=== PATIENT | male | born 1950 | race Caucasian/White ===

== ENCOUNTER 2016-05-14 06:04 | Emergency (ER) | payer OTHER ==
[~2016-05-14] VITALS: Ht 182.9 cm; Wt 77.1 kg
[~2016-05-14 06:04] MED LIST: MEDROL DOSEPAK1 PAC PO
[2016-05-14 08:31] VITALS: BP 110/70
--- NOTE | 2016-05-14 08:54 | ED INFLUENZA/URI COMPLAINT ---
History of Present Illness General Chief Complaint: General Adult Stated Complaint: "IM SICK" Source: patient Exam Limitations: no limitations Vital Signs & Intake/Output Vital Signs & Intake/Output Vital Signs Date Time Temp Pulse Resp B/P Pulse O2 O2 Flow FiO2 Ox Delivery Rate 05/14 0731 99.2 109 110/70 96 05/14 0628 99.3 110 18 135/79 96 Room Air Allergies Coded Allergies: amoxicillin (05/14/16) Reconcile Medications Azithromycin (Zithromax) 250 MG TABLET 1 DP PO AD PNA 2 the first day followed by 1 for days 2-5 Methylprednisolone. (Medrol) 1 PAC PAC 1 TAB PO DAILY ALLERGIC REACTION TAKE PACK DIRECTED Triage Note: COUGH,CHEST CONGESTION SINCE ,DECREASED APPETITE,WAS RX AMOXICILLIN FOR BRONCHITIS BUT IT GAVE HIM DIARRHEA SO HE STOPPED TAKING IT Triage Nurses Notes Reviewed? yes HPI: 65-year-old male with cough congestion and increased wheezing, nasal congestion, tactile fever intermittently for the last 12 days. He was seen at a walk-in center and onset of symptoms and placed on amoxicillin, was able take a few doses of this as they diagnosed with bronchitis however it caused stomach upset. Stopped taking it. He has had a poor appetite. He is able to drink fluids. His symptoms are moderate to severe. Past History Travel History Traveled to [place] past 21 day No Medical History Any Pertinent Medical History? see below for history Neurological: NONE EENT: NONE Cardiovascular: NONE Respiratory: NONE Gastrointestinal: NONE Hepatic: NONE Renal: NONE Musculoskeletal: L LEG FX/SX Psychiatric: PANIC ATTACKS Endocrine: NONE Blood Disorders: NONE Cancer(s): NONE LAWYER PROBATE/Reproductive: NONE Surgical History Surgical History: non-contributory Psychosocial History What is your primary language Azeri Tobacco Use: Never used Family History Hx Contributory? No Review of Systems Review of Systems Constitutional: Reports: see HPI. EENTM: Reports: see HPI. Respiratory: Reports: see HPI. Cardiovascular: Reports: no symptoms. GI: Reports: no symptoms. Genitourinary: Reports: no symptoms. Musculoskeletal: Reports: no symptoms. Skin: Reports: no symptoms. Neurological/Psychological: Reports: no symptoms. Hematologic/Endocrine: Reports: no symptoms. Immunologic/Allergic: Reports: no symptoms. All Other Systems: Reviewed and Negative Physical Exam Physical Exam General Appearance: well developed/nourished Ears, Nose, Throat: moist mucous membrane, hearing grossly normal, pharynx normal, nasal congestion Comments: Well-developed well-nourished no apparent distress. HEENT: Atraumatic, extraocular motion intact Neck: Supple, no lymphadenopathy Back: Nontender Respiratory: No respiratory distress. Faint expiratory wheezing and mild rhonchi noted Heart: Regular rate and rhythm no murmur Abdomen: Soft nontender nondistended Gait is within normal limits Extremities: No edema, full range of motion Neuro: Alert and oriented x3 Psych: Mood affect normal, normal memory normal judgment. Skin: Warm and dry, no rash on exposed skin Core Measures Severe Sepsis Present: No Septic Shock Present: No Progress Differential Diagnosis: influenza, meningitis, neutropenia, otitis, pneumonia, pharyngitis, sinusitis Plan of Care: Orders Procedure Date/time Status XRY-CHEST XRAY, PA AND LATERAL 05/14 844 Active Diagnostic Imaging: Viewed by Me: Radiology Read. Discussed w/RAD: Radiology Read. CXR Impression: PATIENT: ANDREINA MUHAMMAD JR PRESENT AGE: 66 PATIENT ACCOUNT NO: [id number] : 52 LOCATION: [facility] ORDERING PHYSICIAN: RAMON LR SERVICE DATE: 05/14/16 EXAM TYPE: RAD - XRY-CHEST XRAY, PA AND LATERAL EXAMINATION: XR CHEST CLINICAL INFORMATION: Cough , fever COMPARISON: 04/10/2015 TECHNIQUE: PA and lateral views of the chest were obtained. FINDINGS: The lungs are clear with no focal consolidation. No evidence of pneumothorax, pulmonary edema, or pleural effusions. The cardiomediastinal silhouette is unremarkable. No acute osseous findings. IMPRESSION: No acute cardiopulmonary findings. DICTATED BY: KIMBERLEY FINK MD DATE/TIME DICTATED:09/23 USED EQUIPMENT SALES REPRESENTATIVE:ELLIOT DATE/TIME TRANSCRIBED:05/14/16943 Initial ED EKG: none Comments: Patient has had URI symptoms for approximately 12 days, he has not completed a course of antibiotics, his chest x-ray is clear however there may be a slight retrocardiac infiltrate that I see on the lateral view, we'll place him on Zithromax and I will recommend close follow-up with primary care doctor. Departure Departure Disposition: HOME OR SELF CARE Condition: Stable Clinical Impression Primary Impression: Pneumonia Qualifiers: Pneumonia type: due to unspecified organism Laterality: unspecified laterality Lung location: unspecified part of lung Qualified Code: J18.9 - Pneumonia, unspecified organism Referrals: JOSELINE CUEVAS MD (PCP/Family) Additional Instructions: Take antibiotics for your infection as directed. Use [id number] multisystem cold medication as needed. Motrin and Tylenol as needed for fever. Drink plenty of fluids. Return or follow-up with your doctor if not better in the next 5-7 days or if you're having continued worsening fevers, nausea, vomiting, shortness of breath, abdominal pain, difficulty swallowing or drinking or worsening flulike illness. Departure Forms: Customer Survey General Discharge Information Prescriptions: Current Visit Scripts Azithromycin (Zithromax) 1 DP PO AD #6 TAB 2 the first day followed by 1 for days 2-5
[2016-05-14] MEDS ORDERED: ZITHROMAX250 M2 PO (09:28)
--- NOTE | 2016-05-14 09:48 | RADIOLOGY REPORT ---
EXAMINATION: XR CHEST CLINICAL INFORMATION: Cough, fever COMPARISON: 04/10/2015 TECHNIQUE: PA and lateral views of the chest were obtained. FINDINGS: The lungs are clear with no focal consolidation. No evidence of pneumothorax, pulmonary edema, or pleural effusions. The cardiomediastinal silhouette is unremarkable. No acute osseous findings. IMPRESSION: No acute cardiopulmonary findings.
== END 2016-05-14 09:32 ==
LOC: ERH 06:04
DX: J18.9 Pneumonia, unspecified organism (principal)